=== PATIENT | female | born 2000 | race American Indian/Alaskan Native ===

== ENCOUNTER 2021-08-20 17:48 | Emergency (ER) | payer OTHER ==
[2021-08-20] MEDS ORDERED: diphenhydrAMINE 50 MG/ML VIAL IV ONE (18:41)
[2021-08-20] MEDS ORDERED: SODIUM CHLORIDE 0.9% 1000 ML 1,000 ML IV ONE (18:41)
[2021-08-20] MEDS ORDERED: METOCLOPRAMIDE 10 MG/2 ML INJ IV ONE (18:41)
[2021-08-20 19:34] LABS: Basophils % (Auto) 0.2 % (0.0-1.8); Eosinophils # (Auto) 0.1 K/mm3 (0.0-0.4); Eosinophils % (Auto) 1.2 % (0.0-4.3); Hematocrit 40.2 % (30.3-42.9); Hemoglobin 13.2 gm/dl (10.1-14.3); Lymphocytes % (Auto) 18.4 % (13.4-35.0); Mean Corpuscular HGB Conc 33 % (30-34); Mean Corpuscular Volume 79 fl (79-97); Monocytes # (Auto) 0.5 K/mm3 (0.0-0.8); Platelet Count 248 K/mm3 (140-440); Red Blood Count 5.08 M/mm3 (3.65-5.03)
[2021-08-20 19:36] LABS: Bilirubin,Urine NEG (Negative); Blood,Urine NEG (Negative); Color,Urine Yellow (Yellow); Mucus,Urine 1+ /HPF; Protein,Urine <15 mg/dL mg/dL (Negative); Urobilinogen,Urine < 2.0 mg/dL (<2.0)
[2021-08-20 19:36] LABS: Red Cell Distribution Width 20.1 % (13.2-15.2)
[2021-08-20 19:49] LABS: HCG Qualitative,Urine Positive (Negative)
[2021-08-20 19:58] LABS: Alanine Aminotransferase 13 units/L (7-56); Albumin 4.5 g/dL (3.9-5); Blood Urea Nitrogen 3 mg/dL (7-17); Calcium 9.8 mg/dL (8.4-10.2); Hemolysis Index 0
[2021-08-20 20:00] LABS: BUN/Creatinine Ratio 5
--- NOTE | 2021-08-20 20:29 | Emergency Department Report ---
ED General Adult HPI - General Chief complaint: Nausea/Vomiting/Diarrhea Stated complaint: WIH N/V Time Seen by Provider: 08/20/21 18:41 Source: patient Mode of arrival: Ambulatory Limitations: No Limitations - History of Present Illness Initial comments: Patient is a 20-year-old female presents emergency room with complaints of nausea and vomiting that began a few days ago. Patient states that she recently took a home test and it was positive. She states her last menstrual cycle was 07/03/2021. She states that this would be her first . she has not seen anyone to confirm this . She states that she has been having some lower abdominal discomfort. She denies any diarrhea, fever, urinary symptoms, vaginal bleeding. No past medical history. No allergies medications Severity scale (0 -10): 3 - Related Data Previous Rx's Medication Instructions Recorded Last Taken Type Metoclopramide [Reglan] 10 mg PO Q8HR PRN #20 tab 08/20/21 Unknown Rx Allergies Allergy/AdvReac Type Severity Reaction Status Date / Time No Known Allergies Allergy Unverified 08/20/21 17:53 ED Review of Systems ROS: Stated complaint: WIH N/V Other details as noted in HPI Comment: All other systems reviewed and negative ED Past Medical Hx - Medications Home Medications: Home Medications Medication Instructions Recorded Confirmed Last Taken Type Metoclopramide [Reglan] 10 mg PO Q8HR PRN #20 tab 08/20/21 Unknown Rx ED Physical Exam - General Limitations: No Limitations General appearance: alert, in no apparent distress - Head Head exam: Present: atraumatic, normocephalic - Eye Eye exam: Present: normal appearance - ENT ENT exam: Present: mucous membranes moist - Respiratory Respiratory exam: Present: normal lung sounds bilaterally. Absent: respiratory distress, wheezes, rales, rhonchi, stridor, chest wall tenderness, accessory muscle use, decreased breath sounds, prolonged expiratory - Cardiovascular Cardiovascular Exam: Present: regular rate, normal rhythm, normal heart sounds. Absent: systolic murmur, diastolic murmur, rubs, gallop - GI/Abdominal GI/Abdominal exam: Present: soft, normal bowel sounds. Absent: distended, tenderness, guarding, rebound, rigid - Neurological Exam Neurological exam: Present: alert, oriented X3 - Psychiatric Psychiatric exam: Present: normal affect, normal mood - Skin Skin exam: Present: warm, dry, intact ED Course Vital Signs 08/20/21 08/20/21 17:57 22:49 Temperature 98.3 F Pulse Rate 92 H 84 Respiratory 20 Rate Blood Pressure 128/78 126/77 [Right] O2 Sat by Pulse 100 100 Oximetry ED Medical Decision Making - Lab Data Result diagrams: 08/20/21 19:12 08/20/21 19:12 Lab Results 08/20/21 08/20/21 08/20/21 Range/Units 19:12 19:12 19:12 WBC 10.7 (4.5-11.0) K/mm3 RBC 5.08 H (3.65-5.03) M/mm3 Hgb 13.2 (10.1-14.3) gm/dl Hct 40.2 (30.3-42.9) % MCV 79 (79-97) fl MCH 26 L (28-32) pg MCHC 33 (30-34) % RDW 20.1 H (13.2-15.2) % Plt Count 248 (140-440) K/mm3 Lymph % (Auto) 18.4 (13.4-35.0) % [place] % (Auto) 5.0 (0.0-7.3) % Eos % (Auto) 1.2 (0.0-4.3) % Baso % (Auto) 0.2 (0.0-1.8) % Lymph # (Auto) 2.0 (1.2-5.4) K/mm3 [place] # (Auto) 0.5 (0.0-0.8) K/mm3 Eos # (Auto) 0.1 (0.0-0.4) K/mm3 Baso # (Auto) 0.0 (0.0-0.1) K/mm3 Seg Neutrophils % 75.2 H (40.0-70.0) % Seg Neutrophils # 8.1 H (1.8-7.7) K/mm3 Sodium 132 L (137-145) mmol/L Potassium 3.7 (3.6-5.0) mmol/L Chloride 98.3 (98-107) mmol/L Carbon Dioxide 21 L (22-30) mmol/L Anion Gap 16 mmol/L BUN 3 L (7-17) mg/dL Creatinine 0.6 (0.6-1.2) mg/dL Estimated GFR > 60 ml/min BUN/Creatinine Ratio 5 % Glucose 85 (65-100) mg/dL Calcium 9.8 (8.4-10.2) mg/dL Total Bilirubin 0.20 (0.1-1.2) mg/dL AST 14 (5-40) units/L ALT 13 (7-56) units/L Alkaline Phosphatase 65 (35-129) units/L Total Protein 8.2 (6.3-8.2) g/dL Albumin 4.5 (3.9-5) g/dL Albumin/Globulin Ratio 1.2 % HCG, Quant 136779 H (0-4) mIU/mL Urine Color (Yellow) Urine Turbidity (Clear) Urine pH (5.0-7.0) Ur Specific Leon (1.003-1.030) Urine Protein (Negative) mg/dL Urine Glucose (UA) (Negative) mg/dL Urine Ketones (Negative) mg/dL Urine Blood (Negative) Urine Nitrite (Negative) Urine Bilirubin (Negative) Urine Urobilinogen (<2.0) mg/dL Ur Leukocyte Esterase (Negative) Urine WBC (Auto) (0.0-6.0) /HPF Urine RBC (Auto) (0.0-6.0) /HPF U Epithel Cells (Auto) (0-13.0) /HPF Urine Mucus /HPF Urine HCG, Qual (Negative) 08/20/21 Range/Units Unknown WBC (4.5-11.0) K/mm3 RBC (3.65-5.03) M/mm3 Hgb (10.1-14.3) gm/dl Hct (30.3-42.9) % MCV (79-97) fl MCH (28-32) pg MCHC (30-34) % RDW (13.2-15.2) % Plt Count (140-440) K/mm3 Lymph % (Auto) (13.4-35.0) % [place] % (Auto) (0.0-7.3) % Eos % (Auto) (0.0-4.3) % Baso % (Auto) (0.0-1.8) % Lymph # (Auto) (1.2-5.4) K/mm3 [place] # (Auto) (0.0-0.8) K/mm3 Eos # (Auto) (0.0-0.4) K/mm3 Baso # (Auto) (0.0-0.1) K/mm3 Seg Neutrophils % (40.0-70.0) % Seg Neutrophils # (1.8-7.7) K/mm3 Sodium (137-145) mmol/L Potassium (3.6-5.0) mmol/L Chloride (98-107) mmol/L Carbon Dioxide (22-30) mmol/L Anion Gap mmol/L BUN (7-17) mg/dL Creatinine (0.6-1.2) mg/dL Estimated GFR ml/min BUN/Creatinine Ratio % Glucose (65-100) mg/dL Calcium (8.4-10.2) mg/dL Total Bilirubin (0.1-1.2) mg/dL AST (5-40) units/L ALT (7-56) units/L Alkaline Phosphatase (35-129) units/L Total Protein (6.3-8.2) g/dL Albumin (3.9-5) g/dL Albumin/Globulin Ratio % HCG, Quant (0-4) mIU/mL Urine Color Yellow (Yellow) Urine Turbidity Clear (Clear) Urine pH 6.0 (5.0-7.0) Ur Specific Leon 1.016 (1.003-1.030) Urine Protein <15 mg/dl (Negative) mg/dL Urine Glucose (UA) Neg (Negative) mg/dL Urine Ketones Neg (Negative) mg/dL Urine Blood Neg (Negative) Urine Nitrite Neg (Negative) Urine Bilirubin Neg (Negative) Urine Urobilinogen < 2.0 (<2.0) mg/dL Ur Leukocyte Esterase Neg (Negative) Urine WBC (Auto) 1.0 (0.0-6.0) /HPF Urine RBC (Auto) 2.0 (0.0-6.0) /HPF U Epithel Cells (Auto) 3.0 (0-13.0) /HPF Urine Mucus 1+ /HPF Urine HCG, Qual Positive A (Negative) - Radiology Data Radiology results: report reviewed Ordering Physician: ANTHONY PASCUAL Date of Service: 08/20/21 Procedure(s): US OB <= 14 weeks fetus Accession Number(s): [id number] cc: ANTHONY PASCUAL US OB <= 14 weeks fetus INDICATION: abd pain, . TECHNIQUE: OB ultrasound COMPARISON: None available. FINDINGS: There is an intrauterine . [place]-rump length measures 4.9 cm, corresponding to 11 weeks and 5 days. The heart rate measures 1 67 bpm. Neither ovary is visualized. There is no free fluid in the pelvis. IMPRESSION: 1. Intrauterine with sonographic age of 11 weeks and 5 days. Signer Name: Ari Gardiner MD Signed: 08/20/2021 9:40 PM Workstation Name: [id number] Transcribed By: JABARI Dictated By: Ari Gardiner MD Electronically Authenticated By: Ari Gardiner MD Signed Date/Time: 08/20/212139 DD/ 38 TD/TT: Print - Medical Decision Making Patient is a 20-year-old female presents emergency room with complaints of nausea and vomiting that began a few days ago. Patient states that she recently took a home test and it was positive. She states her last menstrual cycle was 07/03/2021. She states that this would be her first . she has not seen anyone to confirm this . She states that she has been having some lower abdominal discomfort. She denies any diarrhea, fever, urinary symptoms, vaginal bleeding. No past medical history. No allergies medications. No abdominal tenderness on exam. Labs with dehydration, given 1 L IV fluids. UA without evidence of UTI. Patient has not yet had a confirmed intrauterine , ultrasound ordered. US OB: 1. Intrauterine with sono graphic age of 11 weeks and 5 days. Patient given medications on the emergency department with improvement of symptoms. Discussed all results with patient and answered questions. Advised patient Take medication as prescribed as needed. May take Tylenol as needed for pain. Increase your water intake. Take a vitamin [id number]. Follow-up with [facility]. Return to emergency room for any new or worsening symptoms. Critical care attestation.: If time is entered above; I have spent that time in minutes in the direct care of this critically ill patient, excluding procedure time. ED Disposition Clinical Impression: Abdominal pain during Qualifiers: Trimester: first trimester Qualified Code(s): O26.891 - Other specified related conditions, first trimester Nausea & vomiting Qualifiers: Vomiting type: unspecified Qualified Code(s): R11.2 - Nausea with vomiting, u nspecified Disposition: 01 HOME / SELF CARE / HOMELESS Is pt being admited?: No Does the pt Need Aspirin: No Condition: Stable Instructions: Nausea and Vomiting, Adult, [id number], Abdominal Pain During Additional Instructions: Take medication as prescribed as needed. May take Tylenol as needed for pain. Increase your water intake. Take a vitamin [id number]. Follow- up with [facility]. Return to emergency room for any new or worsening symptoms. Prescriptions: Metoclopramide [Reglan] 10 mg PO Q8HR PRN #20 tab PRN Reason: nausea/vomiting Referrals: PRIMARY CARE, [Primary Care Provider] - 3-5 Days SHAUNA RAMEY MD [Staff Physician] - 3-5 Days Time of Disposition: 21:47 Print Language: URDU
--- NOTE | 2021-08-20 21:45 | Ultrasound Report ---
US OB <= 14 weeks fetus INDICATION: abd pain, . TECHNIQUE: OB ultrasound COMPARISON: None available. FINDINGS: There is an intrauterine . [place]-rump length measures 4.9 cm, corresponding to 11 weeks and 5 days. The heart rate measures 1 67 bpm. Neither ovary is visualized. There is no free fluid in the pelvis. IMPRESSION: 1. Intrauterine with sonographic age of 11 weeks and 5 days. Signer Name: Ari Gardiner MD Signed: 08/20/2021 9:40 PM Workstation Name: [id number]
[2021-08-20 22:50] VITALS: BP 126/77
== END 2021-08-20 22:52 | disposition home or self-care (01) ==
LOC: ED 17:48
DX: O26.891 Other specified pregnancy related conditions, first trimester (principal); R10.30 Lower abdominal pain, unspecified; O21.9 Vomiting of pregnancy, unspecified; Z3A.11 11 weeks gestation of pregnancy
CPT/HCPCS: 36415; 76801; 80053; 81001; 81025; 84702; 85025; 96361; 96374; 96375; 99284; J1200; J2765; J7030; Q0162